=== PATIENT | female | born 1930 | race Caucasian/White ===

== ENCOUNTER 2016-12-06 18:08 | Inpatient (IN) | payer MEDICARE, MEDICAID ==
[~2016-12-06] VITALS: Ht 144.8 cm; Wt 61.2 kg
[2016-12-06 20:17] LABS: INR 1.2; PROTHROMBIN TIME 12.5 sec
[2016-12-06 20:19] LABS: BASOPHILS % 0.7 % (0.0-2.0); MEAN CORPUSCULAR HEMOGLOBIN 22.6 pg (28.0-32.0); MEAN CORPUSCULAR VOLUME 70.8 fL (81.0-99.0); MEAN PLATELET VOLUME 7.7 fl (7.4-10.4); MONOCYTES % 12.7 % (2.0-8.0); NEUTROPHILS % 69.6 % (40.0-76.0); PLATELET 422 x1000/uL (130-400); RED CELL DISTRIBUTION WIDTH 18.6 % (11.6-14.6)
[2016-12-06 20:21] LABS: HEMATOCRIT. 16.3 % (36.0-48.0); HEMOGLOBIN. 5.2 g/dL (12.0-16.0)
[2016-12-06 20:24] LABS: CARBON DIOXIDE 31 mEq/L (21-32); CHLORIDE 95 mEq/L (98-107)
[2016-12-06] MEDS ORDERED: LEVO50TA8 PO (20:37)
[2016-12-06] MEDS ORDERED: LOSA1TAB34 PO (20:37)
[2016-12-06] MEDS ORDERED: SIMV20TA6 PO (20:37)
[2016-12-06] MEDS ORDERED: HYDROCODONE/ACETAMINOPHEN 5/325MG TABLET PO PRN (22:30)
[2016-12-06] MEDS ORDERED: ACETAMINOPHEN 650MG SUPP PR PRN (22:30)
[2016-12-06] MEDS ORDERED: IPRATROPIUM/ALBUTEROL 0.5-3(2.5)MG/3ML NEB INH PRN (22:30)
[2016-12-06] MEDS ORDERED: DOCUSATE SODIUM 100MG CAPSULE PO PRN (22:30)
[2016-12-06] MEDS ORDERED: MAGNESIUM/ALUMINUM HYDROXIDE/SIMETHICONE 30ML UDC PO PRN (22:30)
[2016-12-06] MEDS ORDERED: CLONIDINE 0.1MG TABLET PO PRN (22:30)
[2016-12-06] MEDS ORDERED: ACETAMINOPHEN 325MG TABLET PO PRN (22:30)
[2016-12-06] MEDS ORDERED: ACETAMINOPHEN 650MG/20.3ML UDC GT PRN (22:30)
[2016-12-06] MEDS ORDERED: NA PHOS,M-B/NA PHOS,DI-BA ENEMA 118ML PR PRN (22:30)
[2016-12-07] MEDS ORDERED: POTASSIUM CHLORIDE 20MEQ TABLET SR PO ONE (00:45)
[2016-12-07 03:51] LABS: *AMPHETAMINES SCREEN URINE NEGATIVE (NEGATIVE); *BARBITURATES SCREEN URINE NEGATIVE (NEGATIVE); *BENZODIAZEPINES SCREEN URINE NEGATIVE (NEGATIVE); *COCAINE SCREEN URINE NEGATIVE (NEGATIVE); CANNABINOID URINE SCREEN NEGATIVE (NEGATIVE); METHADONE URINE SCREEN NEGATIVE (NEGATIVE); OPIATES URINE SCREEN PRESUMTIVE POSITIVE (NEGATIVE); PHENCYCLIDINE URINE SCREEN NEGATIVE (NEGATIVE)
[2016-12-07 03:52] LABS: CLARITY URINE CLEAR (CLEAR); COLOR URINE YELLOW (YELLOW); KETONES URINE NEGATIVE (NEGATIVE); LEUKOCYTE ESTERASE URINE NEGATIVE (NEGATIVE); NITRITE URINE NEGATIVE (NEGATIVE); OCCULT BLOOD URINE NEGATIVE (NEGATIVE); PROTEIN URINE NEGATIVE (NEGATIVE); SPECIFIC GRAVITY URINE 1.016 (1.005-1.030); UROBILINOGEN URINE 0.2 E.U./dL (0.2-1.0)
[2016-12-07] MEDS: GUAIFENESIN 200MG/10ML SUGAR FREE UDC PO PRN (04:05)
[2016-12-07] MEDS: SODIUM CHLORIDE 0.9% INJ 3ML FLUSH IVF SCH ×3 (06:00→21:12)
[2016-12-07 10:18] LABS: BASOPHILS % 0.8 % (0.0-2.0); EOSINOPHILS % 0.8 % (0.0-5.0); HEMATOCRIT. 22.6 % (36.0-48.0); HEMOGLOBIN. 7.5 g/dL (12.0-16.0); LYMPHOCYTES % 12.3 % (20.0-50.0); MEAN CORPUSCULAR HEMOGLOBIN 25.1 pg (28.0-32.0); MEAN CORPUSCULAR VOLUME 75.4 fL (81.0-99.0); MEAN PLATELET VOLUME 7.9 fl (7.4-10.4); MONOCYTES % 12.9 % (2.0-8.0); NEUTROPHILS % 73.2 % (40.0-76.0); PLATELET 331 x1000/uL (130-400); RED CELL DISTRIBUTION WIDTH 19.9 % (11.6-14.6)
[2016-12-07 10:44] LABS: CARBON DIOXIDE 26 mEq/L (21-32); CHLORIDE 100 mEq/L (98-107); HDL CHOLESTEROL 49 mg/dL (40-59); LDL CHOLESTEROL 78 mg/dL (5-100)
[2016-12-07 10:48] LABS: TOTAL IRON BINDING CAPACITY 267 ug/dL (250-450)
[2016-12-07 10:56] LABS: VITAMIN B12 SERUM 1679 pg/mL (211-911)
[2016-12-07 10:58] LABS: FOLIC ACID (FOLATE) SERUM > 20.00 ng/mL (>5.38)
[2016-12-07] MEDS ORDERED: IPRATROPIUM/ALBUTEROL 0.5-3(2.5)MG/3ML NEB HHN PRN (13:45)
[2016-12-07] MEDS: RACEPINEPHRINE 2.25% 0.5ML NEB VIAL HHN SCH ×2 (16:05→20:58)
[2016-12-07] MEDS: LEVOFLOXACIN 750MG PREMIX 150 ML IV SCH (16:12)
[2016-12-07] MEDS: SODIUM CHLORIDE 0.9% 1,000 ML IV SCH (16:13)
[2016-12-07] MEDS ORDERED: DOCUSATE SODIUM 100MG CAPSULE PO SCH (21:00)
[2016-12-07] MEDS: DIPHENHYDRAMINE 50MG/ML VIAL IV PRN (22:40)
[2016-12-08] MEDS: RACEPINEPHRINE 2.25% 0.5ML NEB VIAL HHN SCH (01:09)
[2016-12-08 02:45] LABS: HEMATOCRIT 24.6 % (36.0-48.0); HEMOGLOBIN 8.2 g/dL (12.0-16.0)
[2016-12-08] MEDS: SODIUM CHLORIDE 0.9% INJ 3ML FLUSH IVF SCH ×3 (06:34→22:27)
[2016-12-08 07:04] LABS: INR 1.1; PROTHROMBIN TIME 11.7 sec
[2016-12-08 07:45] LABS: BASOPHILS % 0.9 % (0.0-2.0); EOSINOPHILS % 2.1 % (0.0-5.0); HEMATOCRIT. 25.4 % (36.0-48.0); HEMOGLOBIN. 8.4 g/dL (12.0-16.0); MEAN CORPUSCULAR HEMOGLOBIN 25.4 pg (28.0-32.0); MEAN CORPUSCULAR VOLUME 76.6 fL (81.0-99.0); MEAN PLATELET VOLUME 7.8 fl (7.4-10.4); MONOCYTES % 13.1 % (2.0-8.0); NEUTROPHILS % 67.9 % (40.0-76.0); PLATELET 336 x1000/uL (130-400); RED BLOOD CELL COUNT 3.32 mill/uL (4.2-5.4); RED CELL DISTRIBUTION WIDTH 19.4 % (11.6-14.6)
[2016-12-08 07:59] LABS: CARBON DIOXIDE 28 mEq/L (21-32); CHLORIDE 100 mEq/L (98-107)
[2016-12-08] MEDS ORDERED: BUPIVACAINE HCL/PF 0.25% (2.5MG/ML) 10ML ONE (11:40)
[2016-12-08] MEDS ORDERED: SKIN ADHESIVE 0.7 GM EA TOP ONE (11:40)
[2016-12-08] MEDS ORDERED: SUCCINYLCHOLINE CHLORIDE 200MG/10ML VIAL IV ONE (12:00)
[2016-12-08] MEDS ORDERED: ROCURONIUM BROMIDE 10MG/ML VIAL 5ML IV ONE (12:00)
[2016-12-08] MEDS ORDERED: PROPOFOL 200MG/20ML VIAL IV ONE (12:00)
[2016-12-08] MEDS ORDERED: LIDOCAINE HCL 1% 20ML VIAL (Pyxis) INJ ONE (12:00)
[2016-12-08] MEDS ORDERED: CEFAZOLIN SODIUM 1000MG/VIAL ONE (12:19)
[2016-12-08] MEDS ORDERED: SODIUM CHLORIDE 0.9% 10ML VIAL ONE ×4 (12:19→14:07)
[2016-12-08] MEDS ORDERED: RACEPINEPHRINE 2.25% 0.5ML NEB VIAL HHN PRN (12:30)
[2016-12-08] MEDS ORDERED: DEXAMETHASONE 4MG/ML 1ML VIAL ONE (12:40)
[2016-12-08] MEDS ORDERED: ONDANSETRON HCL 4MG/2ML VIAL ONE (12:40)
[2016-12-08] MEDS ORDERED: EPHEDRINE SULFATE 50MG/ML VIAL ONE (12:42)
[2016-12-08] MEDS ORDERED: GLYCOPYRROLATE 0.2 MG/ML 2ML VIAL ONE (13:17)
[2016-12-08] MEDS ORDERED: NEOSTIGMINE METHYLSULFATE 1MG/ML 10 ML VIAL ONE (13:17)
[2016-12-08] MEDS ORDERED: HYDRALAZINE 20MG/ML VIAL ONE (14:07)
[2016-12-08] MEDS ORDERED: ESMOLOL HCL 10MG/ML 10ML VIAL IV ONE (14:12)
[2016-12-08] MEDS ORDERED: MORPHINE SULFATE 2 MG/ML CPJ (NOT FOR IM USE) IV PRN (15:00)
[2016-12-08] MEDS: SODIUM CHLORIDE 0.9% 1,000 ML IV SCH (16:34)
[2016-12-08] MEDS ORDERED: MORPHINE SULFATE 4 MG/ML CPJ (NOT FOR IM USE) IV PRN (16:45)
[2016-12-08] MEDS ORDERED: HYDROCODONE/ACETAMINOPHEN 5/325MG TABLET PO PRN (16:45)
[2016-12-08] MEDS: ZOLPIDEM TARTRATE 5MG TABLET PO PRN (22:17)
[2016-12-08] MEDS: DIPHENHYDRAMINE 50MG/ML VIAL IV PRN (22:20)
[2016-12-08] MEDS: GUAIFENESIN 200MG/10ML SUGAR FREE UDC PO PRN (22:40)
[2016-12-09] MEDS: SODIUM CHLORIDE 0.9% 1,000 ML IV SCH ×2 (05:30→16:04)
[2016-12-09 11:51] LABS: BASOPHILS % 0.2 % (0.0-2.0); HEMATOCRIT. 26.5 % (36.0-48.0); HEMOGLOBIN. 8.9 g/dL (12.0-16.0); LYMPHOCYTES % 8.5 % (20.0-50.0); MEAN CORPUSCULAR HEMOGLOBIN 26.6 pg (28.0-32.0); MEAN PLATELET VOLUME 7.6 fl (7.4-10.4); MONOCYTES % 10.4 % (2.0-8.0); NEUTROPHILS % 80.9 % (40.0-76.0); PLATELET 354 x1000/uL (130-400); RED BLOOD CELL COUNT 3.35 mill/uL (4.2-5.4); RED CELL DISTRIBUTION WIDTH 19.6 % (11.6-14.6)
[2016-12-09 12:02] LABS: CARBON DIOXIDE 28 mEq/L (21-32); CHLORIDE 102 mEq/L (98-107)
[2016-12-09] MEDS: RACEPINEPHRINE 2.25% 0.5ML NEB VIAL HHN SCH ×2 (14:46→20:51)
[2016-12-09] MEDS: SODIUM CHLORIDE 0.9% INJ 3ML FLUSH IVF SCH ×2 (16:03→21:14)
[2016-12-09] MEDS: LEVOFLOXACIN 750MG PREMIX 150 ML IV SCH (16:03)
[2016-12-09] MEDS: DIPHENHYDRAMINE 50MG/ML VIAL IV PRN ×2 (21:13→22:50)
[2016-12-10] MEDS: RACEPINEPHRINE 2.25% 0.5ML NEB VIAL HHN SCH (01:02)
[2016-12-10] MEDS: GUAIFENESIN 200MG/10ML SUGAR FREE UDC PO PRN ×2 (01:12→06:04)
[2016-12-10] MEDS: ZOLPIDEM TARTRATE 5MG TABLET PO PRN (01:13)
[2016-12-10] MEDS: SODIUM CHLORIDE 0.9% INJ 3ML FLUSH IVF SCH (06:04)
[2016-12-10] MEDS: SODIUM CHLORIDE 0.9% 1,000 ML IV SCH (06:04)
[2016-12-10 06:33] LABS: BASOPHILS % 0.7 % (0.0-2.0); EOSINOPHILS % 0.4 % (0.0-5.0); HEMATOCRIT. 25.1 % (36.0-48.0); HEMOGLOBIN. 8.2 g/dL (12.0-16.0); LYMPHOCYTES % 8.8 % (20.0-50.0); MEAN CORPUSCULAR HEMOGLOBIN 26.2 pg (28.0-32.0); MEAN CORPUSCULAR VOLUME 79.7 fL (81.0-99.0); MEAN PLATELET VOLUME 7.3 fl (7.4-10.4); MONOCYTES % 10.5 % (2.0-8.0); NEUTROPHILS % 79.6 % (40.0-76.0); PLATELET 329 x1000/uL (130-400); RED BLOOD CELL COUNT 3.14 mill/uL (4.2-5.4); RED CELL DISTRIBUTION WIDTH 20.1 % (11.6-14.6)
[2016-12-10 06:56] LABS: CARBON DIOXIDE 28 mEq/L (21-32); CHLORIDE 101 mEq/L (98-107)
[2016-12-10] MEDS ORDERED: POTASSIUM CHLORIDE 20MEQ TABLET SR PO SCH (09:00)
[2016-12-10 12:04] VITALS: BP 119/60
[2017-01-04] MEDS ORDERED: CODE118S2 PO (20:00)
[2017-01-07] MEDS ORDERED: ERTA1VIA2 IV (00:38)
== END 2016-12-10 13:20 | disposition home or self-care (01) | DRG 166 ==
LOC: ER 18:08 → 8WST 19:46 → ER 21:25 → EDBEDREQ 22:34 → ENRESERV 23:37
PROVIDERS: ADMIT Family Medicine; ATTEND Family Medicine
PROC: 30233N1 Transfusion of Nonautologous Red Blood Cells into Peripheral Vein, Percutaneous Approach (ICD-10-PCS; 2016-12-07)
PROC: 0BJ08ZZ Inspection of Tracheobronchial Tree, Via Natural or Artificial Opening Endoscopic (ICD-10-PCS; principal; 2016-12-10)
PROC: 0B9F8ZX Drainage of Right Lower Lung Lobe, Via Natural or Artificial Opening Endoscopic, Diagnostic (ICD-10-PCS; 2016-12-10)
PROC: 07B74ZX Excision of Thorax Lymphatic, Percutaneous Endoscopic Approach, Diagnostic (ICD-10-PCS; 2016-12-10)
DX: C34.90 Malignant neoplasm of unspecified part of unspecified bronchus or lung (principal); J18.9 Pneumonia, unspecified organism; R04.2 Hemoptysis; D64.9 Anemia, unspecified; I10 Essential (primary) hypertension; C73 Malignant neoplasm of thyroid gland; E27.8 Other specified disorders of adrenal gland; R59.9 Enlarged lymph nodes, unspecified; E78.5 Hyperlipidemia, unspecified; E89.0 Postprocedural hypothyroidism; Z85.850 Personal history of malignant neoplasm of thyroid; Z90.710 Acquired absence of both cervix and uterus
CPT/HCPCS: 36415; 36430; 71010; 71250; 80048; 80053; 80061; 80305; 81003; 82270; 82607; 82746; 83036; 83540; 83550; 84443; 85014; 85018; 85025; 85610; 86850; 86900; 86920; 88104; 88108; 88305; 88312; 88331; 93005; 93970; 94640; 94664; 99291; A4216; C1893; J0171; J0330; J0360; J0690; J1100; J1200; J1956; J2405; J2704; J2710; J3490; J7030; J7040; J7050; J7620; P9016

== ENCOUNTER 2017-01-08 08:54 | Emergency (ER) | payer MEDICARE, MEDICAID ==
[~2017-01-08] VITALS: Ht 157.5 cm; Wt 45.0 kg
[~2017-01-08 08:54] MED LIST: CODE118S2 PO; LEVO50TA8 PO; LOSA1TAB34 PO; SIMV20TA6 PO
[2017-01-08 08:59] VITALS: BP 127/74
[2017-01-08 10:10] LABS: HEMATOCRIT. 27.8 % (36.0-48.0); HEMOGLOBIN. 9.2 g/dL (12.0-16.0); MEAN CORPUSCULAR HEMOGLOBIN 27.1 pg (28.0-32.0); MEAN CORPUSCULAR VOLUME 81.4 fL (81.0-99.0); PLATELET 257 x1000/uL (130-400); RED BLOOD CELL COUNT 3.41 mill/uL (4.2-5.4); RED CELL DISTRIBUTION WIDTH 21.7 % (11.6-14.6)
[2017-01-08 10:17] LABS: INR 1.1; PROTHROMBIN TIME 10.9 sec
[2017-01-08 10:24] LABS: CARBON DIOXIDE 31 mEq/L (21-32); CHLORIDE 98 mEq/L (98-107)
[2017-01-08 11:25] LABS: PLATELET ESTIMATE NORMAL
[2017-01-08 11:58] LABS: CLARITY URINE CLEAR (CLEAR); COLOR URINE YELLOW (YELLOW); GLUCOSE URINE NEGATIVE (NEGATIVE); KETONES URINE NEGATIVE (NEGATIVE); LEUKOCYTE ESTERASE URINE NEGATIVE (NEGATIVE); NITRITE URINE NEGATIVE (NEGATIVE); OCCULT BLOOD URINE NEGATIVE (NEGATIVE); PH URINE 8.5 (4.5-8.0); PROTEIN URINE NEGATIVE (NEGATIVE); UROBILINOGEN URINE 0.2 E.U./dL (0.2-1.0)
== END 2017-01-08 12:33 | disposition home or self-care (01) ==
LOC: ER 09:11
DX: N39.498 Other specified urinary incontinence (principal); D64.9 Anemia, unspecified; E78.00 Pure hypercholesterolemia, unspecified; I10 Essential (primary) hypertension; E03.9 Hypothyroidism, unspecified; R53.1 Weakness; Z85.118 Personal history of other malignant neoplasm of bronchus and lung; Z85.841 Personal history of malignant neoplasm of brain; Z79.899 Other long term (current) drug therapy
CPT/HCPCS: 36415; 51702; 72146; 72148; 80053; 81003; 85025; 85610; 99285; J7030; A4315